=== PATIENT | female | born 1960 | race Two or more races ===

== ENCOUNTER 2018-02-09 01:51 | Emergency (ER) | payer SELFPAY ==
[~2018-02-09] VITALS: Ht 154.9 cm; Wt 61.2 kg
[2018-02-09 02:19] VITALS: BP 131/60
[2018-02-09] MEDS ORDERED: PROPARACAINE/FLUORESCEIN 0.5 ML OPHTH DROPS. OU ONE (03:00)
[2018-02-09] MEDS ORDERED: TETRACAINE 0.5% OPHTH SOLUTION 4ML BOTTLE. OS ONE (03:00)
[2018-02-09] MEDS ORDERED: MOXIFLOXACIN 0.5% OPHTH SOLUTION 3ML BOTTLE. OS ONE ×2 (03:00→04:00)
[2018-02-09] MEDS ORDERED: CIPROFLOXACIN 0.3% OPHTH SOLUTION 5ML BOTTLE. OS ONE (03:00)
[2018-02-09] MEDS ORDERED: PROPARACAINE/FLUORESCEIN 0.5 ML OPHTH DROPS. OS ONE (03:00)
[2018-02-09] MEDS ORDERED: MOXI3DRO2 OS (03:27)
[2018-02-09] MEDS ORDERED: HYDR-971 PO (03:53)
--- NOTE | 2018-02-09 03:59 | PHYS DOC ---
Past Medical History Past Medical History: No Pertinent History Past Surgical History: No Surgical History Alcohol Use: None Drug Use: None Adult General Chief Complaint Chief Complaint: EYE PROBLEMS HPI HPI Patient is a 57 year old F WITH CC OF EYE PAIN AND REDNESS. DOES NOT RECALL A SPECIFIC EVENT OR TRAUMA AT ALL. JUST SOME YELLOW DISCAHRGE AND THEN THE REDNESS. Current Medications Current Medications Current Medications Medications (Trade) Dose Ordered Sig/Erlinda Start Time Stop Time Status Last Admin Dose Admin Ciprofloxacin (Ciloxan Ophth) 1 drop 1X ONCE 02/09/18 03:00 02/09/18 03:01 DC 02/09/18 02:57 1 DROP Moxifloxacin HCl (Vigamox) 1 drop 1X ONCE 02/09/18 04:00 02/09/18 04:01 02/09/18 03:53 1 DROP Proparacaine HCl/ Fluorescein Sodium (Flucaine Eye Drops) 1 drop 1X ONCE 02/09/18 03:00 02/09/18 03:01 DC 02/09/18 02:57 1 DROP Tetracaine HCl (Tetracaine) 1 drop 1X ONCE 02/09/18 03:00 02/09/18 03:01 DC 02/09/18 02:56 1 DROP Allergies Allergies Allergies Coded Allergies Type Severity Reaction Last Updated Verified No Known Drug Allergies 07/15/15 No Physical Exam Physical Exam Constitutional: Well developed, well nourished, no acute distress, non-toxic appearance. [] HENT: Normocephalic, atraumatic, bilateral external ears normal, oropharynx moist, no oral exudates, nose normal. [] Eyes: PERRLA EOMI. CONJUNCTIVA INJECTED LEFT EYE, THERE ARE TWO WHITISH COLORED LESIONS AT 9 OCLOCK PERIPHERALLY. THERE IS CORNEAL UPTAKE, ANTERIOR CHAMBER APPPEARS QUIET. IOP 14. Neck: Normal range of motion, no tenderness, supple, no stridor. [] Pulmonary: Normal respiratory effort no increased work of breathing no obvious chest wall trauma Skin: Warm, dry, no erythema, no rash. [] Back: No tenderness, no CVA tenderness. [] Extremities: No tenderness, no cyanosis, no clubbing, ROM intact, no edema. [] Neurologic: Alert and oriented X 3, normal motor function, normal sensory function, no focal deficits noted. [] Psychologic: Affect normal, judgement normal, mood normal. [] Current Patient Data Vital Signs Vital Signs Date Time Temp Pulse Resp B/P (MAP) Pulse Ox O2 Delivery O2 Flow Rate FiO2 02/09/18 02:19 98.7 90 18 131/60 (83) 98 Room Air 98.7 EKG EKG [] Radiology/Procedures Radiology/Procedures [] Course & Med Decision Making Course & Med Decision Making Pertinent Labs and Imaging studies reviewed. (See chart for details) []57 YO F WITH SUSPECT CORNEAL ULCER NOTED LEFT EYE. NOT CONTACT WEARING LENS WEARER. IN ER SYPMTOMS RESOLVED WITH TETRACAINE. MOXIFLOXACIN DROPS ORDERED AND INSTRUCTED TAKE Q1HR WHILE AWAKE. GIVEN F/U FOR OPHTHO ADVISED NEEDS APPT WITHIN 48 HOURS. IF ISSUE WITH FOLLOW UP SHE WAS INSTRUCTED TO COME BACK HERE. VA WAS NORMAL BOTH EYES SEE NURSES NOTE Dragon Disclaimer Dragon Disclaimer This electronic medical record was generated, in whole or in part, using a voice recognition dictation system. Departure Departure Impression: Primary Impression: Corneal ulcer Disposition: HOME, SELF-CARE Condition: STABLE Referrals: Albert POSADAS MD Patient Instructions: Corneal Ulcer Additional Instructions: SEE OPHTHALMOLGOY WITHIN 2 DAYS. COME BACK HERE IF YOU ARE HAVING TROUBLE GETTING IN FOR ANY REASON AT ALL. USE YOUR EYE DROPS EVERY ONE HOUR WHILE AWAKE. Scripts Hydrocodone/Apap 5-325 (NORCO 5-325 TABLET) 1 Each Tablet 1-2 EACH PO PRN Q6HRS PRN for PAIN, #15 as needed for pain Prov: JEREMY MCINTYRE MD 02/09/18 Moxifloxacin Hcl (VIGAMOX) 3 Ml Drops 1 DROP OS Q1HR for 3 Days, #1 BOTTLE Prov: JEREMY MCINTYRE MD 02/09/18 JEREMY MCINTYRE MD Feb 09, 2018 03:59
== END 2018-02-09 03:55 | disposition home or self-care (01) ==
LOC: ER 01:51
DX: H16.002 Unspecified corneal ulcer, left eye (principal)
CPT/HCPCS: 99283

== ENCOUNTER 2018-08-31 02:15 | Emergency (ER) | payer SELFPAY ==
[~2018-08-31] VITALS: Ht 154.9 cm; Wt 58.1 kg
[2018-08-31 02:15] VITALS: BP 114/69
[~2018-08-31 02:15] MED LIST: HYDR-3164 PO; MOXI3DRO2 OS
[2018-08-31] MEDS ORDERED: CLIN300C8 PO (02:40)
[2018-08-31] MEDS ORDERED: CLINDAMYCIN HCL 150 MG CAPSULE. PO ONE (02:45)
--- NOTE | 2018-08-31 05:13 | PHYS DOC ---
Past Medical History Past Medical History: No Pertinent History Past Surgical History: No Surgical History Alcohol Use: None Drug Use: None Adult General Chief Complaint Chief Complaint: INSECT BITE HPI HPI Patient is a 58 year old [female who presents with some bumps to her left groin area she has noticed these for a while now but there were getting more swollen. She is also worried because she has a tooth abscess WELL some swelling near site of recent tooth extraction. worried about infection in her body no primary care doctor sometimes goes to [facility] is a smoker no drugs. Review of Systems Review of Systems Constitutional: Denies fever or chills [] Eyes: Denies change in visual acuity, redness, or eye pain [] HENT: Denies nasal congestion or sore throat [] Respiratory: Denies cough or shortness of breath [] Cardiovascular: No additional information not addressed in HPI [] GI: Denies abdominal pain, nausea, vomiting, bloody stools or diarrhea [] : Denies dysuria or hematuria [] Musculoskeletal: Denies back pain or joint pain [] Integument: Denies rash or skin lesions [] Neurologic: Denies headache, focal weakness or sensory changes [] Endocrine: Denies polyuria or polydipsia [] All other systems were reviewed and found to be within normal limits, except as documented in this note. Current Medications Current Medications Current Medications Medications (Trade) Dose Ordered Sig/Erlinda Start Time Stop Time Status Last Admin Dose Admin Clindamycin HCl (Cleocin) 300 mg 1X ONCE 08/31/18 02:45 08/31/18 02:46 DC 08/31/18 02:47 300 MG Allergies Allergies Allergies Coded Allergies Type Severity Reaction Last Updated Verified No Known Drug Allergies 07/15/15 No Physical Exam Physical Exam Constitutional: Well developed, well nourished, no acute distress, non-toxic appearance. [] HENT: Normocephalic, atraumatic, bilateral external ears normal, oropharynx moist, no oral exudates, nose normal. [] poor dentition with possible very mild apical abscess near recent tooth extraction Eyes: PERRLA, EOMI, conjunctiva normal, no discharge. [] Neck: Normal range of motion, no tenderness, supple, no stridor. [] Cardiovascular:Heart rate regular rhythm, no murmur [] Lungs & Thorax: Bilateral breath sounds clear to auscultation [] Abdomen: Bowel sounds normal, soft, no tenderness, no masses, no pulsatile masses. [] Skin: Warm, dry, no erythema, no rash. [] Back: No tenderness, no CVA tenderness. [] Extremities: there is swelling of left inguinal lymph nodes 1.5 cm mild tender , mobile, mild external erythema.no hernia abdomen nontender. distals ensation pulse and motor function intact Neurologic: Alert and oriented X 3, normal motor function, normal sensory function, no focal deficits noted. [] Psychologic: Affect normal, judgement normal, mood normal. [] Current Patient Data Vital Signs Vital Signs Date Time Temp Pulse Resp B/P (MAP) Pulse Ox O2 Delivery O2 Flow Rate FiO2 08/31/18 02:15 98.6 80 18 114/69 (84) 99 Room Air 98.6 EKG EKG [] Radiology/Procedures Radiology/Procedures [] Course & Med Decision Making Course & Med Decision Making Pertinent Labs and Imaging studies reviewed. (See chart for details) []58 yo f no pmh that she knows of p/w lymphadenopathy left groin. i told pt importance of f/u if the LAD does not resolve to cme back here or [facility] for f/u arrangements Richard Disclaimer Richard Disclaimer This electronic medical record was generated, in whole or in part, using a voice recognition dictation system. Departure Departure Impression: Primary Impression: Lymphadenopathy Disposition: 01 HOME, SELF-CARE Condition: STABLE Patient Instructions: Abscessed Tooth, [id number] Additional Instructions: please get a repeat exam of your left groin after antibiotics to make sure nodes go away. otherwise get a biopsy to make sure everything is okay Scripts Clindamycin Hcl (CLINDAMYCIN HCL) 300 Mg Capsule 1 CAP PO TID, #21 CAP Prov: JEREMY MCINTYRE MD 08/31/18 JEREMY MCINTYRE MD Aug 31, 2018 05:13
== END 2018-08-31 02:50 | disposition home or self-care (01) ==
LOC: ER 02:15
DX: R59.1 Generalized enlarged lymph nodes (principal)
CPT/HCPCS: 99283